=== PATIENT | male | born 1980 | race Caucasian/White ===

== ENCOUNTER 2018-01-05 23:35 | Emergency (ER) | payer MEDICAID ==
[2018-01-06 00:17] LABS: ADD MAN DIFF? NO
[2018-01-06 00:19] LABS: WHITE BLOOD COUNT 12.2 10^3/ul (4.8-10.8)
[2018-01-06 00:19] LABS: BASOPHIL # 0.1 10^3/ul (0.0-0.1); BASOPHILS % 0.4 % (0.0-2.0); EOSINOPHILS # 0.3 10^3/ul (0.0-0.5); EOSINOPHILS % 2.1 % (0.0-7.0); HEMATOCRIT 37.9 % (42.0-52.0); HEMOGLOBIN 12.6 g/dl (14.0-18.0); LYMPHOCYTES % 40.5 % (15.0-51.0); MEAN CORPUSCULAR HGB CONC 33.2 g/dl (32.0-37.0); MEAN CORPUSCULAR VOLUME 87.3 fl (82.0-101.0); MEAN PLATELET VOLUME 9.1 fl (7.4-10.4); MONOCYTE # 0.6 10^3/ul (0.3-0.9); MONOCYTES % 4.7 % (0.0-11.0); NEUTROPHIL # 6.3 10^3/ul (1.6-7.5); NEUTROPHILS % 51.3 % (39.0-77.0); PLATELET COUNT 368 10^3/UL (140-415); RED BLOOD COUNT 4.34 10^6/ul (4.70-6.10); RED CELL DISTRIBUTION WIDTH 13.6 % (11.5-14.5)
[2018-01-06 00:43] LABS: ANION GAP 14 (8-16); BLOOD UREA NITROGEN 12 mg/dl (7-20); CALCIUM 9.1 mg/dl (8.4-10.2); CARBON DIOXIDE 29 mmol/L (21-31); CHLORIDE 104 mmol/L (97-110); CREATININE 0.77 mg/dl (0.61-1.24); GLUCOSE 222 mg/dl (70-220); INR 0.83; POTASSIUM 4.3 mmol/L (3.5-5.1); PROTIME 11.5 Sec (11.9-14.9); PT RATIO 0.9; SODIUM 143 mmol/L (135-144)
[2018-01-06 00:44] LABS: PARTIAL THROMBOPLASTIN TIME 31.2 Sec (25.0-35.0)
[2018-01-06 01:11] LABS: TROPONIN-I < 0.012 ng/ml (0.000-0.120)
[2018-01-06 01:27] LABS: ETHANOL < 10.0 mg/dl
[2018-01-06] MEDS: ASPIRIN 81 MG TAB PO (01:56)
[2018-01-06] MEDS: NITROGLYCERIN 2% 1 GM OINT PKT TD (01:56)
[2018-01-06] MEDS ORDERED: morphine 2 MG INJ IV (03:00)
[2018-01-06] MEDS ORDERED: NACL 0.9% 3 ML SYG IV (03:00)
[2018-01-06] MEDS ORDERED: ALBUTEROL/IPRATROPIUM (NEB) 3 ML AMP HHN (03:00)
[2018-01-06] MEDS ORDERED: ONDANSETRON 4 MG INJ IV (03:00)
[2018-01-06] MEDS ORDERED: NITROGLYCERIN (SL) 0.4 MG TAB SL (03:00)
[2018-01-06 03:24] LABS: ADD MAN DIFF? NO
[2018-01-06 03:32] LABS: BASOPHILS % 0.3 % (0.0-2.0); EOSINOPHILS % 0.1 % (0.0-7.0); HEMATOCRIT 40.2 % (42.0-52.0); HEMOGLOBIN 13.8 g/dl (14.0-18.0); LYMPHOCYTES % 8.8 % (15.0-51.0); MEAN CORPUSCULAR HEMOGLOBIN 29.5 pg (29.0-33.0); MEAN CORPUSCULAR HGB CONC 34.3 g/dl (32.0-37.0); MEAN CORPUSCULAR VOLUME 85.9 fl (82.0-101.0); MEAN PLATELET VOLUME 8.9 fl (7.4-10.4); MONOCYTE # 0.4 10^3/ul (0.3-0.9); MONOCYTES % 3.8 % (0.0-11.0); NEUTROPHIL # 9.4 10^3/ul (1.6-7.5); NEUTROPHILS % 85.8 % (39.0-77.0); PLATELET COUNT 221 10^3/UL (140-415); RED BLOOD COUNT 4.68 10^6/ul (4.70-6.10); RED CELL DISTRIBUTION WIDTH 13.1 % (11.5-14.5)
[2018-01-06 03:48] LABS: MAGNESIUM 1.5 mg/dl (1.7-2.5)
[2018-01-06 03:48] LABS: CHOL/HDL RATIO 3.2 RATIO; CHOLESTEROL 174 mg/dl (100-200); HDL CHOLESTEROL 53 mg/dl (27-67); LDL CHOLESTEROL,CALCULATED 90 mg/dl; TRIGLYCERIDES 155 mg/dl (0-149)
[2018-01-06 03:50] LABS: ALANINE AMINOTRANSFERASE 57 IU/L (13-69); ALBUMIN 5.1 g/dl (3.3-4.9); ALBUMIN/GLOBULIN RATIO 1.37; ALKALINE PHOSPHATASE 100 IU/L (42-121); ANION GAP 29 (8-16); ASPARTATE AMINO TRANSFERASE 43 IU/L (15-46); BILIRUBIN,INDIRECT 1.3 mg/dl (0-1.1); BILIRUBIN,TOTAL 1.3 mg/dl (0.2-1.3); BLOOD UREA NITROGEN 16 mg/dl (7-20); CALCIUM 10.6 mg/dl (8.4-10.2); CARBON DIOXIDE 23 mmol/L (21-31); CHLORIDE 98 mmol/L (97-110); CREATININE 0.68 mg/dl (0.61-1.24); GLUCOSE 234 mg/dl (70-220); POTASSIUM 3.1 mmol/L (3.5-5.1); SODIUM 147 mmol/L (135-144); TOTAL PROTEIN 8.8 g/dl (6.1-8.1)
[2018-01-06] MEDS: ACETAMINOPHEN 325 MG TAB PO (05:52)
[2018-01-06 06:43] LABS: TROPONIN-I 0.012 ng/ml (0.000-0.120)
[2018-01-06 06:45] LABS: CK-MB 0.31 ng/ml (0.0-2.4)
[2018-01-06 06:46] LABS: CK INDEX 0.5; CREATINE KINASE 62 IU/L (23-200)
[2018-01-06] MEDS ORDERED: HYDROCHLOROTHIAZIDE 25 MG TAB PO (09:00)
[2018-01-06] MEDS ORDERED: ENOXAPARIN 40 MG/0.4 ML SYG SC (09:00)
[2018-01-06] MEDS ORDERED: BENZTROPINE 1 MG TAB PO (09:00)
[2018-01-06] MEDS ORDERED: FISH OIL 1,000 MG CAP PO (09:00)
[2018-01-06] MEDS ORDERED: DIVALPROEX (ER) 500 MG TAB PO (09:00)
[2018-01-06] MEDS ORDERED: HALOPERIDOL 5 MG TAB PO (09:00)
[2018-01-06] MEDS ORDERED: ASPIRIN 81 MG TAB PO (09:00)
== END 2018-01-06 06:00 | disposition left against medical advice (07) ==
LOC: E/R 23:35
DX: R07.9 Chest pain, unspecified (principal); F15.10 Other stimulant abuse, uncomplicated; F12.10 Cannabis abuse, uncomplicated; D64.9 Anemia, unspecified; I10 Essential (primary) hypertension; E11.9 Type 2 diabetes mellitus without complications; Z79.84 Long term (current) use of oral hypoglycemic drugs; Z87.891 Personal history of nicotine dependence
CPT/HCPCS: 36415; 71045; 80048; 80053; 80061; 80307; 82550; 82553; 83735; 84443; 84484; 85025; 85610; 85730; 93005; 99285-25

== ENCOUNTER 2018-07-11 13:32 | Emergency (ER) | payer SELFPAY | END 2018-07-11 16:28 | disposition left against medical advice (07) | LOC: E/R 16:28 | DX: Z53.21 Procedure and treatment not carried out due to patient leaving prior to being seen by health care provider (principal) ==

== ENCOUNTER 2018-08-31 22:37 | Emergency (ER) | payer OTHER ==
[2018-09-01 00:16] LABS: ADD MAN DIFF? NO
[2018-09-01 00:17] LABS: ABNORMAL IP MESSAGE 1; BASOPHIL # 0.1 10^3/ul (0.0-0.1); BASOPHILS % 0.5 % (0.0-2.0); EOSINOPHILS % 0.3 % (0.0-7.0); HEMATOCRIT 39.7 % (42.0-52.0); HEMOGLOBIN 12.8 g/dl (14.0-18.0); LYMPHOCYTES # 5.1 10^3/ul (0.8-2.9); LYMPHOCYTES % 43.7 % (15.0-51.0); MEAN CORPUSCULAR HEMOGLOBIN 28.8 pg (29.0-33.0); MEAN CORPUSCULAR HGB CONC 32.2 g/dl (32.0-37.0); MEAN CORPUSCULAR VOLUME 89.4 fl (82.0-101.0); MEAN PLATELET VOLUME 8.8 fl (7.4-10.4); MONOCYTE # 0.8 10^3/ul (0.3-0.9); MONOCYTES % 6.7 % (0.0-11.0); NEUTROPHIL # 5.6 10^3/ul (1.6-7.5); NEUTROPHILS % 48.4 % (39.0-77.0); PLATELET COUNT 383 10^3/UL (140-415); POSITIVE DIFF @See below; RED BLOOD COUNT 4.44 10^6/ul (4.70-6.10); RED CELL DISTRIBUTION WIDTH 14.3 % (11.5-14.5)
[2018-09-01 00:17] LABS: WHITE BLOOD COUNT 11.6 10^3/ul (4.8-10.8)
[2018-09-01 01:08] LABS: VALPROATE 47 ug/ml (50-100)
[2018-09-01 01:31] LABS: ALANINE AMINOTRANSFERASE 7 IU/L (13-69); ALBUMIN 4.4 g/dl (3.3-4.9); ALBUMIN/GLOBULIN RATIO 1.33; ALKALINE PHOSPHATASE 59 IU/L (42-121); ANION GAP 10 (5-13); ASPARTATE AMINO TRANSFERASE 19 IU/L (15-46); BLOOD UREA NITROGEN 9 mg/dl (7-20); CALCIUM 9.2 mg/dl (8.4-10.2); CARBON DIOXIDE 24 mmol/L (21-31); CHLORIDE 111 mmol/L (97-110); CREATININE 0.93 mg/dl (0.61-1.24); Estimated GFR > 60 mL/min (>60); GLUCOSE 111 mg/dl (70-220); MAGNESIUM 2.1 mg/dl (1.7-2.5); PHOSPHORUS 3.5 mg/dl (2.5-4.9); SODIUM 145 mmol/L (135-144); TOTAL PROTEIN 7.7 g/dl (6.1-8.1)
[2018-09-01 01:36] LABS: ACETAMINOPHEN < 10.0 ug/ml (10.0-30.0); ETHANOL < 10.0 mg/dl (0-0); SALICYLATE < 1.0 mg/dl (5.0-30.0)
[2018-09-01 01:41] LABS: TROPONIN-I < 0.012 ng/ml (0.000-0.120)
[2018-09-01 01:44] LABS: ADD UMIC NO; UR ASCORBIC ACID NEGATIVE (NEGATIVE); UR BILIRUBIN (Dip) NEGATIVE (NEGATIVE); UR BLOOD (Dip) NEGATIVE (NEGATIVE); UR CLARITY CLEAR (CLEAR); UR COLOR YELLOW (YELLOW); UR GLUCOSE (Dip) NEGATIVE (NEGATIVE); UR KETONES (Dip) TRACE mg/dL (NEGATIVE); UR LEUKOCYTE ESTERASE (Dip) NEGATIVE Leu/ul (NEGATIVE); UR NITRITE (Dip) NEGATIVE (NEGATIVE); UR SPECIFIC GRAVITY (Dip) 1.014 (1.003-1.030); UR TOTAL PROTEIN (Dip) NEGATIVE (NEGATIVE); UR UROBILINOGEN (Dip) NEGATIVE (NEGATIVE)
[2018-09-01 02:07] LABS: AMPHETAMINE/METHAMPHETAMINE Negative (NEGATIVE); BARBITURATES Negative (NEGATIVE); CANNABINOIDS Negative (NEGATIVE); COCAINE Negative (NEGATIVE); OPIATES Negative (NEGATIVE)
[2018-09-01 02:08] LABS: BENZODIAZEPINES Positive (NEGATIVE)
[2018-09-01] MEDS: LORAZEPAM 2 MG INJ IM (02:18)
[2018-09-01] MEDS: DIPHENHYDRAMINE 50 MG INJ IM (02:18)
[2018-09-01] MEDS: HALOPERIDOL 5 MG INJ IM (02:18)
[2018-09-01] MEDS ORDERED: LORAZEPAM 1 MG TAB PO (02:30)
[2018-09-01] MEDS ORDERED: DIPHENHYDRAMINE 50 MG INJ IM (03:30)
[2018-09-01] MEDS ORDERED: HALOPERIDOL 5 MG INJ IM (03:30)
[2018-09-01] MEDS ORDERED: LORAZEPAM 2 MG INJ IM (03:30)
[2018-09-01] MEDS ORDERED: DIVALPROEX (EC) 500 MG TAB PO (21:00)
== END 2018-09-01 10:49 ==
LOC: E/R 22:37
DX: F29 Unspecified psychosis not due to a substance or known physiological condition (principal); F19.939 Other psychoactive substance use, unspecified with withdrawal, unspecified; D64.9 Anemia, unspecified; E11.9 Type 2 diabetes mellitus without complications; I10 Essential (primary) hypertension; Z79.84 Long term (current) use of oral hypoglycemic drugs; Z87.891 Personal history of nicotine dependence
CPT/HCPCS: 80053; 80164; 80307; 81003; 82962; 83735; 84100; 84484; 85025; 93005; 96372; 99285-25

== ENCOUNTER 2018-09-13 20:18 | Emergency (ER) | payer MEDICARE, OTHER ==
[2018-09-13] MEDS: IBUPROFEN 800 MG TAB PO (22:47)
== END 2018-09-13 23:00 | disposition left against medical advice (07) ==
LOC: E/R 20:18
DX: M25.531 Pain in right wrist (principal)
CPT/HCPCS: 99282